=== PATIENT | male | born 1955 | race Hispanic/Latino ===

== ENCOUNTER 2018-09-07 10:14 | Day surgery (SDC) | payer OTHER ==
[~2018-09-07] VITALS: Ht 172.7 cm; Wt 88.5 kg
[~2018-09-07 10:14] MED LIST: ACAR100T PO; CITA40TA4 PO; INSULANT SC; KRIL1CAP7 PO; LEVOTAB10 PO; LOSA50TA88 PO; METF500T13 PO; MULTCAP PO; NS 1,000 ML IV ONE; PROAAER10; ROSU40TA3 PO; TRAM50TA2 PO; VITA1CAP25 PO; collagen PA
--- NOTE | 2018-09-07 12:29 | ROOR ---
Patient Name: Héctor Still Procedure Date: 09/07/2018 12:09 PM Date of : 1955 Age: 62 Room: [facility] Gender: Male Note Status: Finalized Procedure: Total Colonoscopy to Cecum + Cold Snare Polypectomy + Hemoclip Indications: Screening for colorectal malignant neoplasm Providers: Delvin Woods MD Referring MD: Anshul Bowers Md Requesting Provider: Medicines: Monitored Anesthesia Care Complications: No immediate complications. Procedure: Pre-Anesthesia Assessment: - The heart rate, respiratory rate, oxygen saturations, blood pressure, adequacy of pulmonary ventilation, and response to care were monitored throughout the procedure. The Colonoscope was introduced through the anus and advanced to the cecum, identified by appendiceal orifice and ileocecal valve. The colonoscopy was performed without difficulty. The patient tolerated the procedure well. The quality of the bowel preparation was excellent. Findings: The perianal and digital rectal examinations were normal. Non-bleeding internal hemorrhoids were found during retroflexion. The hemorrhoids were small and Grade I (internal hemorrhoids that do not prolapse). Two sessile polyps were found in the ascending colon. The polyps were medium in size. These polyps were removed with a cold snare. Resection and retrieval were complete. To prevent bleeding after the polypectomy, one hemostatic clip was successfully placed (MR conditional). There was no bleeding at the end of the procedure. A small polyp was found in the hepatic flexure. The polyp was sessile. The polyp was removed with a cold snare. Resection and retrieval were complete. The exam was otherwise without abnormality on direct and retroflexion views. Impression: - Non-bleeding internal hemorrhoids. - Two medium polyps in the ascending colon, removed with a cold snare. Resected and retrieved. Clip (MR conditional) was placed. - One small polyp at the hepatic flexure, removed with a cold snare. Resected and retrieved. - The examination was otherwise normal on direct and retroflexion views. - The exam was otherwise normal to the cecum. Recommendation: - Patient has a contact number available for emergencies. The signs and symptoms of potential delayed complications were discussed with the patient. Return to normal activities tomorrow. Written discharge instructions were provided to the patient. - High fiber diet. - Discharge patient to home. - Continue present medications. - Await pathology results. - Telephone GI clinic for pathology results in 1 week. - Repeat colonoscopy for surveillance based on pathology results. - Return to referring physician. - The findings and recommendations were discussed with the patient's family. Delvin Woods MD Delvin Woods MD 09/07/2018 12:29:13 PM Electronically signed by Delvin Woods MD Number of Addenda: 0 Note Initiated On: 09/07/2018 12:09 PM Estimated Blood Loss: Estimated blood loss: none.
[2018-09-07 12:55] VITALS: BP 129/72
[2018-09-07] MEDS ORDERED: PROPOFOL 200 MG/20 ML VIAL As Ordered ONE (13:14)
[2018-09-07] MEDS ORDERED: LIDOCAINE 2% INJ 100 MG/5 ML SDV (FOR ANES.) As Ordered ONE (13:14)
== END 2018-09-07 13:20 | disposition home or self-care (01) ==
LOC: M OPP 10:14
PROVIDERS: ATTEND Internal Medicine Gastroenterology
DX: K64.0 First degree hemorrhoids (principal); D12.2 Benign neoplasm of ascending colon; D12.3 Benign neoplasm of transverse colon; Z12.11 Encounter for screening for malignant neoplasm of colon

== ENCOUNTER → 2020-07-10 | Outpatient (CLI) | payer OTHER ==
[~2020-07-10] MED LIST changes: -NS 1,000 ML IV ONE; -ROSU40TA3 PO; +ROSU40TA4 PO
[2020-07-10 16:45] LABS: IMMUNOGLOBULIN M 31.8 MG/DL (40-230)
== END ==
LOC: M PLALAB 13:25
PROVIDERS: ATTEND Nurse Practitioner Family
DX: J30.1 Allergic rhinitis due to pollen (principal); J30.81 Allergic rhinitis due to animal (cat) (dog) hair and dander; J30.89 Other allergic rhinitis

== ENCOUNTER 2024-03-06 09:16 | Day surgery (SDC) | payer OTHER, MEDICARE ==
[~2024-03-06] VITALS: Ht 172.7 cm; Wt 85.3 kg
[~2024-03-06 09:16] MED LIST changes: +ABIR250T PO; +ACET650T15 PO; +BENA25CA4 PO; +CELE1CAP4 PO; +CETI10CA13 PO; -CITA40TA4 PO; +CITA40TA7 PO; +FLON27.5; +GLIP10TA PO; +INSULADS SC; +KRIL1CAP PO; -KRIL1CAP7 PO; +LOSA50TA28 PO; -LOSA50TA88 PO; +METF-839 PO; +MIRT1TAB16 PO; +MUCI1TAB16 PO; +MYRB50TA PO; +NOVOINJ3 SC; +NS 250 ML IV ONE; +POTA-151 PO; +PRED5TA PO; +PSEU30TA87 PO; -ROSU40TA4 PO; +ROSU40TA81 PO; +THERTAB52 PO; +VENTAER INH; +VITAD1000T PO; +eligard SC
[2024-03-06] MEDS ORDERED: propofoL 200 MG/20 ML VIAL As Ordered ONE (10:39)
[2024-03-06] MEDS ORDERED: LIDOCAINE 2% 100MG/5ML SDV (FOR ANES.) As Ordered ONE (10:39)
[2024-03-06 11:26] VITALS: TEMP 97.9
[2024-03-06 11:50] VITALS: BP 126/71; O2SAT 99
== END 2024-03-06 12:00 | disposition home or self-care (01) ==
LOC: M OPP 09:16
PROVIDERS: ATTEND Internal Medicine Gastroenterology
DX: Z12.11 Encounter for screening for malignant neoplasm of colon (principal); K57.30 Diverticulosis of large intestine without perforation or abscess without bleeding; K64.0 First degree hemorrhoids; Z86.0100 Personal history of colon polyps, unspecified; K43.9 Ventral hernia without obstruction or gangrene; Z85.46 Personal history of malignant neoplasm of prostate; E11.9 Type 2 diabetes mellitus without complications; I10 Essential (primary) hypertension; E78.00 Pure hypercholesterolemia, unspecified; G47.30 Sleep apnea, unspecified; J45.909 Unspecified asthma, uncomplicated; Z79.899 Other long term (current) drug therapy; Z79.84 Long term (current) use of oral hypoglycemic drugs; Z79.4 Long term (current) use of insulin; Z92.3 Personal history of irradiation; Z92.21 Personal history of antineoplastic chemotherapy; Z90.89 Acquired absence of other organs; Z91.013 Allergy to seafood; Z91.040 Latex allergy status; Z88.6 Allergy status to analgesic agent; Z91.048 Other nonmedicinal substance allergy status

== ENCOUNTER → 2025-02-24 | Outpatient (CLI) | payer OTHER, MEDICARE ==
[~2025-02-24] MED LIST changes: -ABIR250T PO; +ABIR250T2 PO; +ACET-1515 PO; -ACET650T15 PO; -NS 250 ML IV ONE
[2025-02-24 07:16] LABS: ESTIMATED AVERAGE GLUCOSE 151.0 MG/DL (60-110)
[2025-02-24 07:27] LABS: CREATININE, URINE 31.4 MG/DL; MALB URINE SIEMENS 57.0 MG/L; MAU/CREAT RATIO 181.5 MCG/MG (0.0-30.0)
[2025-02-24 07:31] LABS: THYROXINE (T4) 6.1 UG/DL (4.5-10.9); TOTAL 25(OH) VITAMIN D 52.3 NG/ML (20.0-100.0)
[2025-02-24 07:32] LABS: ALT/SGPT 60.0 U/L (7.0-40); AST/SGOT 37.0 U/L (<34); CALCIUM LEVEL 9.8 MG/DL (8.3-10.6); CARBON DIOXIDE LEVEL 26.0 MMOL/L (20-31); CHLORIDE LEVEL 107.0 MMOL/L (98-107); CHOLESTEROL LEVEL 129.0 MG/DL (<200); CHOLESTEROL RISK RATIO 4.72 (<5); CREATININE FOR GFR 1.17 MG/DL (0.70-1.30); FREE T4 0.86 NG/DL (0.89-1.76); GLOMERULAR FILTRATION RATE 67.5 (>49); LDL CHOLESTEROL 46.9 MG/DL (<100); NON-HDL-C 101.7 MG/DL; POTASSIUM SERUM 4.5 MMOL/L (3.5-5.1); SODIUM LEVEL 145.0 MMOL/L (136-145); TRIGLYCERIDES LEVEL 274.0 MG/DL (<150); VITAMIN B12 LEVEL 738.0 PG/ML (211-911)
== END ==
LOC: M LAB 06:06
PROVIDERS: ATTEND Internal Medicine Endocrinology, Diabetes & Metabolism
DX: E11.65 Type 2 diabetes mellitus with hyperglycemia (principal); E78.5 Hyperlipidemia, unspecified; E55.9 Vitamin D deficiency, unspecified; M85.80 Other specified disorders of bone density and structure, unspecified site